=== PATIENT | male | born 1935 | race Native Hawaiian/Other Pacific Islander ===

== ENCOUNTER 2017-07-23 10:31 | Inpatient (IN) | payer OTHER ==
[~2017-07-23] VITALS: Ht 165.1 cm; Wt 63.0 kg
[2017-07-23] MEDS ORDERED: IV NORMAL SALINE 1000 ML BAG IV ONE (10:45)
[2017-07-23] MEDS ORDERED: LOSARTAN PO (10:59)
[2017-07-23 11:01] LABS: BASOPHILS % (AUTO) 0.8 % (0.0-2.0); EOSINOPHILS # (AUTO) 0.1 K/uL (0.0-0.7); EOSINOPHILS % (AUTO) 2.4 % (0.0-7.0); HEMATOCRIT 44.5 % (36.7-47.1); HEMOGLOBIN 13.9 g/dL (12.5-16.3); LYMPHOCYTES % (AUTO) 31.7 % (20.5-51.5); MEAN CORPUSCULAR HEMOGLOBIN 21.3 uug (23.8-33.4); MEAN CORPUSCULAR HGB CONC 31 g/dL (32.5-36.3); MEAN CORPUSCULAR VOLUME 68.4 fL (73.0-96.2); MONOCYTES # (AUTO) 0.6 K/uL (2.0-10.0); MONOCYTES % (AUTO) 10.3 % (0.0-11.0); NEUTROPHILS # (AUTO) 3.4 K/uL (1.8-8.9); NEUTROPHILS % (AUTO) 54.8 % (38.5-71.5); PLATELET COUNT (AUTO) 252 K/uL (152-348); WHITE BLOOD COUNT (AUTO) 6.2 K/uL (3.6-10.2)
[2017-07-23 11:05] LABS: RED BLOOD CELL COUNT(AUTO) 6.51 MIL/uL (4.06-5.63)
--- NOTE | 2017-07-23 11:06 | NUR ---
PT IS IN ROOM #1B. DR FINK EVALUATED THE PT.
[2017-07-23 11:17] LABS: ALANINE AMINOTRANSFERASE 27 U/L (16-63); ALKALINE PHOSPHATASE 57 U/L (50-136); ASPARTATE AMINOTRANSFERASE 24 U/L (15-37); BILIRUBIN,DIRECT 0.1 mg/dL (0.0-0.2); BILIRUBIN,TOTAL 0.5 mg/dL (0.2-1.0); CARBON DIOXIDE 26 mmol/L (21-32); CHLORIDE 103 mmol/L (98-107); CREATININE 1.1 mg/dL (0.6-1.3); GLUCOSE 162 mg/dL (74-106); POTASSIUM 3.2 mmol/L (3.5-5.1); TOTAL PROTEIN, SERUM 7.3 g/dL (6.4-8.2); UREA NITROGEN, BLOOD 24 mg/dL (7-18)
[2017-07-23 12:00] VITALS: BP 146/47
--- NOTE | 2017-07-23 12:08 | NUR ---
PT WAS TRANSFERED TO ROOM #222. REPORT WAS GIVEN TO REGULATORY PROCESS MANAGER.
[2017-07-23 12:18] LABS: EOSINOPHILS % (MANUAL) 3 % (0-8); LYMPHOCYTES % (MANUAL) 32 % (20-40); MONOCYTES % (MANUAL) 9 % (2-10); NEUTROPHILS % (MANUAL) 56 % (42-75)
[2017-07-23 13:00] VITALS: BP 146/47
--- NOTE | 2017-07-23 13:03 | NUR ---
Patient was received from Emergency room, alert and oriented, with syncope, alert and oriented, moves all extremities, sitting up on side of bed. Belonging list completed, will have take his money and credit cards. Patient states on Hyzaar (Hydrochlorothiazide/cozaar) 25-100 daily filled at [facility] in [place] and Ranitidine 300 mg filled at [facility] in [place], Blood pressure on admission was 146/77 hr 77, to engine monitor.
[2017-07-23] MEDS ORDERED: MAGNESIUM HYDROXIDE 30 ML LIQUID UDC PO PRN (15:00)
[2017-07-23] MEDS ORDERED: TEMAZEPAM 15 MG CAPSULE PO PRN (15:00)
[2017-07-23] MEDS ORDERED: ACETAMINOPHEN 325 MG TABLET PO PRN (15:00)
[2017-07-23] MEDS ORDERED: hydrALAZINE HCL 25 MG TABLET PO PRN (15:00)
[2017-07-23] MEDS ORDERED: HYDROCODONE/APAP 5-325MG TABLET PO PRN (15:00)
[2017-07-23] MEDS ORDERED: ONDANSETRON 4 MG/2 ML VIAL IV PRN (15:00)
[2017-07-23] MEDS ORDERED: TEMAZEPAM 7.5 MG CAPSULE PO PRN (15:15)
--- NOTE | 2017-07-23 16:52 | NUR ---
Bedside report received from Nika Booth. reports to follow up on ordered orthostatic blood pressure at this time.
[2017-07-23 17:13] VITALS: BP 128/62
[2017-07-23 17:14] VITALS: BP 127/60
[2017-07-23 17:15] VITALS: BP 134/65
[2017-07-23 20:00] VITALS: BP_SYST 112; BP_SYST 127; BP_SYST 128; BP_SYST 134; BP_DIAS 58; BP_DIAS 60; BP_DIAS 62; BP_DIAS 65
--- NOTE | 2017-07-23 20:03 | NUR ---
Received patient in bed awake alert & oriented, no SOB denies chest pain. Vital signs WNL. Orthostatic blood pressure done. Dr. Werner in room examining this patient. Sinus rhythm on the monitor. Will continue to monitor.
[2017-07-23] MEDS ORDERED: DOCUSATE SODIUM 100 MG CAPSULE PO SCH (21:00)
[2017-07-23] MEDS ORDERED: DOCUSATE SODIUM 250 MG CAPSULE PO SCH (21:00)
[2017-07-24] VITALS: BP 131/59
[2017-07-24 04:00] VITALS: BP 140/68
[2017-07-24 06:42] LABS: BASOPHILS # (AUTO) 0.1 K/uL (0.0-8.0); BASOPHILS % (AUTO) 1.2 % (0.0-2.0); EOSINOPHILS # (AUTO) 0.2 K/uL (0.0-0.7); EOSINOPHILS % (AUTO) 3.8 % (0.0-7.0); HEMATOCRIT 39.6 % (36.7-47.1); HEMOGLOBIN 12.7 g/dL (12.5-16.3); LYMPHOCYTES # (AUTO) 1.6 K/uL (20.0-40.0); LYMPHOCYTES % (AUTO) 27.9 % (20.5-51.5); MEAN CORPUSCULAR HEMOGLOBIN 21.7 uug (23.8-33.4); MEAN CORPUSCULAR HGB CONC 32 g/dL (32.5-36.3); MEAN CORPUSCULAR VOLUME 67.7 fL (73.0-96.2); MONOCYTES # (AUTO) 0.7 K/uL (2.0-10.0); MONOCYTES % (AUTO) 11.8 % (0.0-11.0); NEUTROPHILS # (AUTO) 3.2 K/uL (1.8-8.9); NEUTROPHILS % (AUTO) 55.3 % (38.5-71.5); PLATELET COUNT (AUTO) 242 K/uL (152-348); RED BLOOD CELL COUNT(AUTO) 5.85 MIL/uL (4.06-5.63); WHITE BLOOD COUNT (AUTO) 5.7 K/uL (3.6-10.2)
--- NOTE | 2017-07-24 06:45 | NUR ---
PT NOTED TO HAVE SLEPT FAIRLY. C/O HEADACHE AND TYLENOL PO PROVIDED. TELE MONITOR SHOWS SINUS RHYTHM. ALL NEEDS ATTENDED TO.
[2017-07-24 06:59] LABS: IRON, SERUM 67 ug/dL (50-175)
[2017-07-24] MEDS ORDERED: PANTOPRAZOLE SODIUM 40 MG TABLET.DR PO SCH (07:00)
[2017-07-24 07:17] LABS: THYROID STIMULATING HORMONE 0.342 mIU/mL (0.358-3.740)
--- NOTE | 2017-07-24 07:35 | NUR ---
Received report from shift superintendent nurse, patient in bed awake, no evidence of distress noted at this time, bed in low position, side rails up x2. Patient reports improved headache.
[2017-07-24 08:02] LABS: ALANINE AMINOTRANSFERASE 24 U/L (16-63); ALKALINE PHOSPHATASE 48 U/L (50-136); ASPARTATE AMINOTRANSFERASE 18 U/L (15-37); BILIRUBIN,TOTAL 0.4 mg/dL (0.2-1.0); CARBON DIOXIDE 29 mmol/L (21-32); CHLORIDE 108 mmol/L (98-107); CHOLESTEROL 171 mg/dL (<200); GLUCOSE 108 mg/dL (74-106); HDL CHOLESTEROL 46 mg/dL (40-60); PHOSPHOROUS 3.1 mg/dL (2.5-4.9); POTASSIUM 3.9 mmol/L (3.5-5.1); TOTAL PROTEIN, SERUM 6.2 g/dL (6.4-8.2); TRIGLYCERIDES 77 MG/DL (30-150); UREA NITROGEN, BLOOD 21 mg/dL (7-18)
[2017-07-24 09:53] LABS: EOSINOPHILS % (MANUAL) 5 % (0-8); LYMPHOCYTES % (MANUAL) 31 % (20-40); MONOCYTES % (MANUAL) 10 % (2-10); NEUTROPHILS % (MANUAL) 54 % (42-75)
--- NOTE | 2017-07-24 10:00 | NUR ---
PATIENT WAS FOUND TAKING HIS OWN MEDICATIONS. ASKED PATIENT IF HE HAS ANY OTHER PILLS, AND HE POINTED TO THE CLOSET AND STATED THAT ALL OF HIS MEDICATIONS WERE IN A BOX. ALL MEDICATIONS SENT TO PHARMACY.
[2017-07-24 11:00] VITALS: BP_SYST 125; BP_SYST 126; BP_SYST 130; BP_DIAS 55; BP_DIAS 60; BP_DIAS 61
[2017-07-24 11:05] VITALS: BP 130/60
[2017-07-24] MEDS ORDERED: TAMS-3 PO (11:29)
[2017-07-24] MEDS ORDERED: RANI300C PO (11:30)
[2017-07-24 15:11] VITALS: BP 128/62
[2017-07-24] MEDS ORDERED: METF500T6 PO (16:12)
[2017-07-24] MEDS ORDERED: SIMV10TA2 PO (16:12)
[2017-07-24] MEDS ORDERED: ASPI-618 PO (16:12)
--- NOTE | 2017-07-24 17:10 | NUR ---
PATIENT WAS GIVEN DISCHARGE INSTRUCTIONS, IV REMOVED AND ALL DISCHARGE INFORMATION REVIEWED. NO EVIDENCE OF DISTRESS AT THIS TIME, PATIENT IS BEING TAKEN DOWN TO MEET FAMILY IN LOBBY.
[2017-07-24] MEDS ORDERED: TAMSULOSIN HCL 0.4 MG CAP.SR.24H PO SCH (21:00)
== END 2017-07-24 17:15 | disposition home or self-care (01) | DRG 918 ==
LOC: ER 10:31 → TELE 12:27
PROVIDERS: ADMIT Internal Medicine; ATTEND Internal Medicine
DX: T46.5X1A Poisoning by other antihypertensive drugs, accidental (unintentional), initial encounter (principal); E87.5 Hyperkalemia; I95.2 Hypotension due to drugs; E11.9 Type 2 diabetes mellitus without complications; E86.0 Dehydration; E87.6 Hypokalemia; R55 Syncope and collapse; Y92.510 Bank as the place of occurrence of the external cause; K21.9 Gastro-esophageal reflux disease without esophagitis; M17.0 Bilateral primary osteoarthritis of knee; I11.9 Hypertensive heart disease without heart failure; E05.90 Thyrotoxicosis, unspecified without thyrotoxic crisis or storm
CPT/HCPCS: 36415; 70030-TC; 71045; 83550; 83735; 84100; 84443; 85025; 85730; 93005; 93307; 93880; A4663; J7030